=== PATIENT | female | born 1950 ===

== ENCOUNTER 2017-09-23 06:05 | Day surgery (SDC) | payer OTHER | END 2017-09-23 12:35 | disposition home or self-care (01) | LOC: AMB-ENDOS 06:05 | DX: D12.0 Benign neoplasm of cecum (principal); D12.2 Benign neoplasm of ascending colon ==

== ENCOUNTER → 2018-08-25 | Day surgery (SDC) | payer OTHER | END | disposition home or self-care (01) | LOC: ADM 08-22 14:30 → AMB-ENDOS 06:10 | DX: D12.5 Benign neoplasm of sigmoid colon (principal) ==

== ENCOUNTER 2019-07-27 09:50 | Day surgery (SDC) | payer OTHER | END 2019-07-27 14:25 | disposition home or self-care (01) | LOC: AMB-ENDOS 09:50 | DX: D12.3 Benign neoplasm of transverse colon (principal); K57.30 Diverticulosis of large intestine without perforation or abscess without bleeding; K64.4 Residual hemorrhoidal skin tags ==

== ENCOUNTER 2021-05-01 06:30 | Day surgery (SDC) | payer OTHER | END 2021-05-01 10:15 | disposition home or self-care (01) | LOC: AMB-ENDOS 06:30 | PROVIDERS: ATTEND Surgery | DX: D12.0 Benign neoplasm of cecum (principal); Z20.822 Contact with and (suspected) exposure to COVID-19 ==